=== PATIENT | male | born 1945 | race Hispanic/Latino ===

== ENCOUNTER 2020-05-26 06:47 | Day surgery (SDC) | payer OTHER ==
[~2020-05-26 06:47] MED LIST: ATOR40TA71 PO; FENO145T26 PO; GLIP-162 PO; HYDR25TA PO; LISI10TA24 PO; METF-527 PO; METO-409 PO; PANT40TA54 PO
[2020-05-26] MEDS ORDERED: SODIUM CHLORIDE 0.9% 1000ML 1,000 ML IV ONE (07:12)
[2020-05-26 07:30] VITALS: BP 156/62
[2020-05-26] MEDS ORDERED: PROPOFOL 10 MG/ML 20ML VIAL IV ONE ×2 (08:38→08:51)
[2020-05-26] MEDS ORDERED: EPHEDRINE SULFATE 50 MG/ML AMPULE ONE (08:52)
[2020-05-26] MEDS ORDERED: PHENYLEPHRINE HCL 10 MG/ML 1ML VIAL IV ONE (09:01)
[2020-05-26 09:15] VITALS: BP 110/32
[2020-05-26 09:18] VITALS: BP 76/20
[2020-05-26 09:23] VITALS: BP 102/42
[2020-05-26 09:28] VITALS: BP 112/52
== END 2020-05-26 09:55 | disposition home or self-care (01) ==
LOC: DAH 06:47 → ENDO 06:47
PROVIDERS: ATTEND Internal Medicine Gastroenterology
DX: R93.3 Abnormal findings on diagnostic imaging of other parts of digestive tract (principal); K31.89 Other diseases of stomach and duodenum; I10 Essential (primary) hypertension; I25.10 Atherosclerotic heart disease of native coronary artery without angina pectoris; E11.9 Type 2 diabetes mellitus without complications; D50.9 Iron deficiency anemia, unspecified; K21.9 Gastro-esophageal reflux disease without esophagitis; K57.30 Diverticulosis of large intestine without perforation or abscess without bleeding; K64.0 First degree hemorrhoids; M10.9 Gout, unspecified; E78.5 Hyperlipidemia, unspecified; Z90.49 Acquired absence of other specified parts of digestive tract; Z86.010 Personal history of colon polyps; Z79.82 Long term (current) use of aspirin; Z79.84 Long term (current) use of oral hypoglycemic drugs; Z79.899 Other long term (current) drug therapy; Z20.828 Contact with and (suspected) exposure to other viral communicable diseases
CPT/HCPCS: 43238; 43239; 82948; A4215 ×3; A4216; A4221; A4222; A4223 ×2; A4606; A4620; A4657 ×2; A4663; C9803; J2370; J2704 ×2; J3490; J7030; U0003

== ENCOUNTER → 2021-12-01 | Outpatient (CLI) | payer OTHER ==
[2021-12-01 12:31] LABS: CREATININE 1.9 mg/dL (0.5-1.5); POTASSIUM 3.9 mmol/L (3.5-5.1)
== END | disposition home or self-care (01) ==
LOC: LAB 10:23
PROVIDERS: ATTEND Internal Medicine Cardiovascular Disease
DX: I10 Essential (primary) hypertension (principal)
CPT/HCPCS: 36415; 80048

== ENCOUNTER → 2022-09-22 | Outpatient (CLI) | payer OTHER ==
[2022-09-22 13:02] LABS: ALBUMIN 3.5 g/dL (3.5-5.0); CREATININE 1.9 mg/dL (0.5-1.5); POTASSIUM 4.3 mmol/L (3.5-5.1)
== END | disposition home or self-care (01) ==
LOC: LAB 10:36
PROVIDERS: ATTEND Physician Assistant
DX: I10 Essential (primary) hypertension (principal); E78.5 Hyperlipidemia, unspecified
CPT/HCPCS: 36415; 80053; 80061

== ENCOUNTER → 2023-01-29 | Outpatient (CLI) | payer OTHER ==
[2023-01-29 12:45] LABS: ALBUMIN 3.9 g/dL (3.5-5.0); BILIRUBIN,TOTAL 0.6 mg/dL (0.2-1.0); CREATININE 2.1 mg/dL (0.5-1.5); TOTAL PROTEIN, SERUM 7.4 g/dL (6.0-8.3)
== END | disposition home or self-care (01) ==
LOC: LAB 10:45
PROVIDERS: ATTEND Physician Assistant
DX: I10 Essential (primary) hypertension (principal); E78.5 Hyperlipidemia, unspecified
CPT/HCPCS: 36415; 80053; 80061

== ENCOUNTER → 2025-02-09 | Outpatient (CLI) | payer OTHER ==
[~2025-02-09] MED LIST changes: -GLIP-162 PO; +GLIP-300 PO
== END | disposition home or self-care (01) ==
LOC: RAH 13:30
PROVIDERS: ATTEND Internal Medicine Cardiovascular Disease
DX: I08.0 Rheumatic disorders of both mitral and aortic valves (principal); I44.2 Atrioventricular block, complete
CPT/HCPCS: 93306

== ENCOUNTER → 2025-02-26 | Outpatient (CLI) | payer OTHER ==
--- NOTE | 2025-02-26 22:49 | HMCIMG ---
EXAM: US Abdomen Complete CLINICAL HISTORY: Elevated LFTs; post-cholecystectomy. TECHNIQUE: Real-time sonographic evaluation of the abdomen with image documentation. COMPARISON: None provided. FINDINGS: LIVER: Liver enlarged, measuring 16 cm in craniocaudal length. Parenchyma demonstrates mildly increased echogenicity, compatible with hepatic steatosis. A right hepatic cyst is present, measuring 2.7 ??? 1.6 ??? 2.0 cm. No intrahepatic biliary dilatation. Liver contours smooth. GALLBLADDER: Surgically absent. COMMON BILE DUCT: CBD measures 1 mm, normal for post-cholecystectomy. PANCREAS: Unremarkable where visualised. RIGHT KIDNEY: Measures 10.9 ??? 5.6 ??? 4.9 cm. Multiple renal cysts present; largest measures 2.9 ??? 2.7 ??? 2.2 cm. No hydronephrosis or calculi. LEFT KIDNEY: Measures 11.5 ??? 5.3 ??? 3.6 cm. No hydronephrosis, calculus, or solid mass. SPLEEN: Measures 10.5 ??? 8.1 ??? 2.6 cm. Normal echotexture; no focal lesion. IVC: Normal in appearance. AORTA: Normal calibre. MISCELLANEOUS: Right pleural effusion noted. IMPRESSION: * Hepatomegaly with mild hepatic steatosis. * Right hepatic cyst (2.7 cm). * Multiple right renal cysts, largest measuring 2.9 cm. * Post-cholecystectomy. No biliary obstruction . * Right pleural effusion. /[place]
== END | disposition home or self-care (01) ==
LOC: RAH 09:02
PROVIDERS: ATTEND Internal Medicine Gastroenterology
DX: K76.0 Fatty (change of) liver, not elsewhere classified (principal); N28.1 Cyst of kidney, acquired; K76.89 Other specified diseases of liver; J90 Pleural effusion, not elsewhere classified; R74.01 Elevation of levels of liver transaminase levels; Z90.49 Acquired absence of other specified parts of digestive tract
CPT/HCPCS: 76700